=== PATIENT | male | born 1970 | race Hispanic/Latino ===

== ENCOUNTER 2023-11-13 08:53 | Emergency (ER) | payer OTHER ==
[~2023-11-13] VITALS: Ht 177.8 cm; Wt 99.5 kg
[2023-11-13] MEDS ORDERED: LISINOPRIL5 MG PO (09:39)
[2023-11-13] MEDS ORDERED: PRAVASTATIN SOD40 MG (09:39)
[2023-11-13] MEDS: LACTATED RINGER'S 1,000 ML INJ ONE (09:53)
[2023-11-13] MEDS: ONDANSETRON HCL INJ 2MG/ML 2ML 2 MG/ML VIAL IV ONE (09:58)
[2023-11-13] MEDS: KETOROLAC TROMETHAMINE 30 MG/ML VIAL IV ONE (09:58)
[2023-11-13] MEDS: FAMOTIDINE 20 MG/2 ML VIAL IV ONE (09:58)
[2023-11-13 10:39] VITALS: PULSE 62; RESP 16; TEMP 98.3; O2SAT 98
[2023-11-13] MEDS ORDERED: IBUPROFEN200 MG PO (10:48)
[2023-11-13] MEDS ORDERED: ZANAFLEX4 MG PO (10:48)
[2023-11-13] MEDS ORDERED: PREDNISONE20 MG PO (10:48)
== END 2023-11-13 10:58 | disposition home or self-care (01) ==
LOC: FSED 08:56
DX: R10.30 Lower abdominal pain, unspecified (principal); M54.50 Low back pain, unspecified; I10 Essential (primary) hypertension
CPT/HCPCS: 74176; 80053; 81003; 85025; 96360; 96374; 96375; 99284; J1885; J2405; J7121